=== PATIENT | female | born 1970 | race Caucasian/White ===

== ENCOUNTER 2016-12-12 09:18 | Emergency (ER) | payer OTHER ==
[2016-12-12 09:46] VITALS: RESP 16
--- NOTE | 2016-12-12 10:10 | DI ---
RIGHT ANKLE, 12/12/2016 9:32 AM: Clinical History: Inversion injury to the ankle. Previous Exam: None at this facility. 3 views are submitted. There is soft tissue swelling over the lateral malleolus. No fracture or dislo cation or joint effusion is present. Reading: No fracture noted.
--- NOTE | 2016-12-12 10:24 | PDOC ---
Foot / Ankle Injury - General Chief Complaint: Lower Extremity Problem/Injury Stated Complaint: INJURY RIGHT ANKLE Date Seen by Provider: 12/12/16 Time Seen by Provider: 09:35 - History of Present Illness Initial Comments: Patient is a very nice 45-year-old woman who presents to the emergency department with complaints of right lateral ankle pain. She states that she had an inversion twisting injury that caused her to fall about 4 days ago and that she had substantial swelling in that ankle the swelling has subsided some but she still has substantial pain there and is reluctant to bear weight especially with full weight on that ankle. She was figuring it should be better by now and was wanting to have it evaluated. Have you received a tetanus shot in the past 10 years?: Yes - Patient Allergies Allergies/Adverse Reactions: Allergies Allergy/AdvReac Type Severity Reaction Status Date / Time Iodinated Contrast- Oral and Allergy Severe Anaphylaxis Verified 12/12/16 09:20 IV Dye clarithromycin [From Biaxin] Allergy Intermediate HIVES Verified 12/12/16 09:20 - Patient Home Medications Home Medications: Home Medications NK [No Home Medications Reported] 12/12/16 Past Medical History - heen HEENT History: Denies History Cardiovascular History: Denies History Respiratory History: Denies History Gastrointestinal History: Denies History Genitourinary History: Denies History Endocrine History: Denies History Musculoskeletal History: Denies History Prosthesis or Implant: No Neurological History: Denies History Blood Disorders: Denies History Psychiatric History: Denies History History of Sexually Transmitted Diseases: No Female Reproductive History: Hysterectomy Additional Female Reproductive History: TOTAL HYSTERECTOMY- 20 YEARS AGO LMP: 1996 Obstetrical History: Denies History Cancer History: Denies History In Past Year Been Physically Harmed or Verbally Threatened: No History of MDRO: No History of Other Communicable Diseases: No Tobacco Use: Never Smoker Alcohol Use: Occasionally Type of alcohol normally used: Beer Substance Use Type: None Previous Surgical History: Yes Type / Date of Surgery: TOTAL HYSTERECTOMY- 20 YEARS AGO Anesthesia Reactions: No Malignant Hyperthermia: No Family History of Malignant Hyperthermia: No Significant Family History: No pertinent family hx Past Medical History Reviewed: Reviewed - No Changes ROS - Limitations ROS Limitations: No Limitations Constitution: REPORTS: Denies Symptoms Cardiovascular: REPORTS: Denies Cardiac Symptoms Respiratory: REPORTS: Denies Resp Symptoms Neurological: REPORTS: Denies Neuro Symptoms Foot / Ankle Exam - General Appearance General Appearance: POSITIVE: Alert, Cooperative, No Acute Distress - Extremities Ankle: POSITIVE: Other (the ankle does have significant tenderness and some bruising around the lateral malleolus with reluctance to dorsiflex or plantarflex the foot secondary to discomfort.) Foot / Ankle Progress - Results Reviewed by me Xrays/CTs/US Reviewed by me: Yes Radiology Findings: Benign x-ray - Patient's Progress MDM / ED Course: X-rays look okay there is no obvious fracture I've asked her to try to continue resting the ankle some and slowly return to use she can continue to use ice compression and elevation for symptomatic management as well also for a few days using some anti-inflammatories be helpful. If she cannot slowly return to normalcy with her ankle have asked her to see an orthopedic surgeon if she is not progressing nicely. Patient Care Time - Estimated PCT Patient Care Time (In Minutes): 20 Vital Signs - Recent Vital Signs Vital Signs: Vital Signs (Last 8 hours) Temp Pulse Resp BP Pulse Ox 12/12/16 09:26 96.9 F 81 16 153/111 96 - VS Reviewed Vital Signs Reviewed: Yes Discharge Clinical Impression: Sprain of ankle Qualifiers: Encounter type: initial encounter Involved ligament of ankle: other ligament Laterality: right Qualifier Code: (S93.491A) Sprain of other ligament of right ankle, initial encounter Discharge Disposition: Discharged to Home Condition: Stable Patient Instructions Given at Discharge: Ankle Sprain (ED) Additional Instructions: Slowly return to use with her ankle If it is continuing to cause substantial troubles over the next few days consider seeing orthopedics for further evaluation Use anti-inflammatories and elevation and compression and occasional icing to help with her symptoms Follow Up With: NONE,NONE [Primary Care Provider] -
[2016-12-12 13:46] VITALS: TEMP 97.6
== END 2016-12-12 10:20 | disposition home or self-care (01) ==
LOC: ER 09:18
DX: S93.401A Sprain of unspecified ligament of right ankle, initial encounter (principal); X50.1XXA Overexertion from prolonged static or awkward postures, initial encounter
CPT/HCPCS: 73610; 99282